=== PATIENT | female | born 1995 | race Two or more races ===

== ENCOUNTER 2017-12-19 23:29 | Emergency (ER) | payer OTHER | END 2017-12-20 00:30 | disposition home or self-care (01) | LOC: H.EROB2 23:29 | DX: O47.1 False labor at or after 37 completed weeks of gestation (principal); Z3A.37 37 weeks gestation of pregnancy ==

== ENCOUNTER 2017-12-20 04:53 | Inpatient (IN) | payer OTHER ==
[2017-12-20 05:38] VITALS: BMI 28.5
[2017-12-20] MEDS ORDERED: Oxytocin 30 UNITS in Sodium Chloride 0.9% 500 ML IV PRN (05:38)
[2017-12-20] MEDS: Lactated Ringer's 1,000 ML IV SCH ×4 (05:50→16:00)
[2017-12-20] MEDS ORDERED: Nalbuphine 20 mg/ml Inj (1 ml) IVP PRN (05:52)
[2017-12-20 06:29] LABS: BASO # 0.1 K/uL (0.0-0.2); BASO % 0.5 % (0.0-2.0); EOS # 0.1 K/uL (0.0-0.7); EOS % 0.4 % (0.0-4.0); LYMPH # 1.8 K/uL (1.0-4.3); LYMPH % 10.5 % (20.0-40.0); MEAN CELL VOLUME 85.5 fl (81.0-99.0); MEAN CORPUSCULAR HEMOGLOBIN 27.3 pg (27.0-31.0); MEAN PLATELET VOLUME 9.8 fl (7.2-11.7); MONO # 1.1 K/uL (0.0-0.8); MONO % 6.5 % (0.0-10.0); NEUT % 82.1 % (50.0-75.0); NRBC % 0.1 % (0.0-0.0); RBC 4.02 Mil/uL (3.80-5.20); RED CELL DISTRIBUTION WIDTH 15.5 % (11.5-14.5); WHITE BLOOD COUNT 17.1 K/uL (4.8-10.8)
[2017-12-20] MEDS ORDERED: Lidocaine 1% Inj (20ml) ONE (08:59)
[2017-12-20] MEDS ORDERED: Fentanyl/Bupivacaine HCl 250 ML EPI ONE (08:59)
--- NOTE | 2017-12-20 11:41 | OBPN ---
Datetime: 12/20/2017 11:38 IP Progress Impression: Reassuring heart rate IP Progress Plan: Continue present management Contraction Comments Provider: q4-5min FHR - Baseline A Provider: 120s IP Progress Note Comment: Pt resting comfortably s/p epidural. Cont current management. Both MWB/F WB reassuring at this time Vital Signs Provider: Reviewed; Within Normal Limits NICHD Accel Fetus A IP Provider: 15X15 FHR Category Provider Fetus A: Category I NICHD Variability Prov Fetus A: Moderate 6-25bpm Dilatation, Provider: 4 NICHD Decel Fetus A IP Provider: None Datetime: 12/20/2017 05:43 Pool Provider: Positive Nitrazine Provider: Positive Membranes, Provider: Ruptured Amniotic Fluid Color, Provider: Meconium, Light
--- NOTE | 2017-12-20 17:37 | OBPN ---
Datetime: 12/20/2017 17:28 IP Progress Impression: Reassuring heart rate IP Procedures: Sterile Vag Exam IP Progress Plan: Continue present management; Augmentation Contraction Comments Provider: q4min FHR - Baseline A Provider: 150s-160s IP Progress Note Comment: Plan to start Pitocin augmentation due to patient 9 cm for a little over 1 hour. Patient comfortable without complaints. Maternal well-being and well-being reassuring at this time. Vital Signs Provider: Reviewed; Within Normal Limits NICHD Accel Fetus A IP Provider: 15X15 NICHD Variability Prov Fetus A: Moderate 6-25bpm Dilatation, Provider: 9 Effacement, Provider: 100 Station, Provider: 0 NICHD Decel Fetus A IP Provider: None
[2017-12-20] MEDS ORDERED: Lidocaine 2% PF (10 ml) Amp ONE ×2 (17:42→21:16)
[2017-12-20] MEDS ORDERED: Gentamicin 80mg/50ml NS 80 MG/50 ML BAG IVPB SCH (18:30)
[2017-12-20] MEDS ORDERED: AMPicillin 2 GM in Sodium Chloride 0.9% 100 ML IVPB ONE (18:37)
[2017-12-20] MEDS ORDERED: AMPicillin 1 GM in Sodium Chloride 0.9% 100 ML IVPB SCH (21:00)
[2017-12-20] MEDS ORDERED: ceFAZolin 2 GM in Sodium Chloride 0.9% 100 ML IVPB ONE (21:05)
[2017-12-20] MEDS ORDERED: Morphine 1 mg/ml preservative-free Inj(Duramorph) ONE (21:23)
[2017-12-20] MEDS ORDERED: DiphenhydrAMINE 50 mg/ml Inj IVP PRN (22:08)
[2017-12-20] MEDS ORDERED: Morphine 1 mg/ml preservative-free Inj(Duramorph) EPI ONE (22:08)
[2017-12-21] MEDS ORDERED: Oxycodone/Acetaminophen 5/325 mg Tab PO PRN ×3 (01:17→01:47)
[2017-12-21] MEDS ORDERED: Nalbuphine 20 mg/ml Inj (1 ml) IVP PRN (01:47)
[2017-12-21] MEDS ORDERED: DiphenhydrAMINE 50 mg/ml Inj IVP PRN (01:47)
[2017-12-21] MEDS: AMPicillin 1 GM in Sodium Chloride 0.9% 100 ML IVPB SCH ×6 (02:00→22:00)
[2017-12-21] MEDS: Lactated Ringer's 1,000 ML IV SCH ×2 (02:51→09:47)
[2017-12-21] MEDS: Simethicone 80 mg Chewtab PO SCH ×4 (04:00→21:43)
[2017-12-21] MEDS ORDERED: Simethicone 80 mg Chewtab PO SCH (04:00)
[2017-12-21 06:48] LABS: HEMOGLOBIN 9.5 g/dL (12.0-16.0); MEAN CORPUSCULAR HGB CONC 32.9 g/dL (33.0-37.0); RBC 3.4 Mil/uL (3.80-5.20); RED CELL DISTRIBUTION WIDTH 15.3 % (11.5-14.5); WHITE BLOOD COUNT 25.4 K/uL (4.8-10.8)
--- NOTE | 2017-12-21 08:36 | OBDS ---
DELIVERY PERSONNEL Delivery Doctor: Chema Valdez MD Scrub Nurse: Kelsy Clark Material Stress Tester: Melony Hernandez RN Anesthesiologist: karli TORRES MATERNAL INFORMATION Delivery Anesthesia: Epidural Medications in Delivery: ancef 2grams, pit 30/500, pit Estimated Blood Loss (ml): 800 Placenta Cultured: No Maternal Complications: Maternal Fever Provider Comments: Primary low flap transverse section. Patient delivered viable with Apgars of 9 and 9 at one and 5 minutes respectively. Normal u terus, normal tubes and ovaries bilaterally. Placenta delivered manually. Estimated blood loss 800 mL Fluids 1700 mL lactated Ringer's Urine output 250 mL No complications LABOR SUMMARY EDC: 01/09/2018 00:00 No. Babies in Womb: 1 Attempted: No Labor Anesthesia: Epidural LABOR INFORMATION Reason for Induction: Not Applicable Onset of Labor: 12/20/2017 11:50 Complete Dilatation: 12/20/2017 18:18 Oxytocin: Augmentation Group B Beta Strep: Negative Steroids Given: None Reason Steroids Not Administered: Not Applicable MEMBRANES Membranes Rupture Method: Spontaneous Rupture of Membranes: 12/20/2017 03:30 Length of Rupture (hrs): 18.28 Amniotic Fluid Color: Light Meconium Amniotic Fluid Amount: Large STAGES OF LABOR Stage 1 hrs: 6 Stage 1 min: 28 Stage 2 hrs: 3 Stage 2 min: 29 Stage 3 hrs: 0 Stage 3 min: 1 Total Time in Labor hrs: 9 Total Time in Labor min: 58 CSECTION DELIVERY Primary Indication: Failure of Descent CSection Urgency: Emergency CSection Incidence: Primary Labor: Labor Elective: Elective CSection Incision: Lower Uterine Transverse BABY A INFORMATION Delivery Date/Time: 12/20/2017 21:47 Method of Delivery: Born in Route : No : N/A Forceps: N/A Vacuum Extraction: N/A Shoulder Dystocia : No SHOULDER DYSTOCIA BABY A Infant Delivery Date/Time: 12/20/2017 21:47 PRESENTATION/POSITION BABY A Presentation: Cephalic PLACENTA INFORMATION BABY A Placenta Delivery Time : 12/20/2017 21:48 Placenta Method of Delivery: Manual Removal Placenta Status: Delivered SCORES BABY A Heart Rate 1 min: >100 bpm Resp Effort 1 min: Good Cry Reflex Irritability 1 min: Cough or Sneeze or Pulls Away Muscle Tone 1 min: Active Motion Color 1 min: Body [place], Extremities Blue Resuscitation Effort 1 min: N/A SCORE 1 MIN: 9 Heart Rate 5 min: >100 bpm Resp Effort 5 min: Good Cry Reflex Irritability 5 min: Cough or Sneeze or Pulls Away Muscle Tone 5 min: Active Motion Color 5 min: Body [place], Extremities Blue Resuscitation Effort 5 min: N/A SCORE 5 MIN: 9 INFORMATION BABY A Gestational Age at Delivery: 37.1 Gestational Status: Term Infant Outcome : Liveborn Condition : Stable Sex: Male IDENTIFICATION/MEDS BABY A ID Band Number: [id number] ID Band Location: Left Leg; Left Arm WEIGHT/LENGTH BABY A Birthweight (gms): 2900 Infant Weight (lb): 6 Weight (oz): 6 CORD INFORMATION BABY A No. Cord Vessels: 3 Nuchal Cord : N/A Cord Blood Taken: Yes Infant Suction: Mouth; Nose ASSESSMENT BABY A Infant Complications: Other Complications Other: light mech noted Physical Findings at Delivery: Caput Succedaneum Respirations: Appears Normal Closet Builder/ALS Called : No Care By: DR Stein Transferred To: Remains with Mother
[2017-12-21] MEDS: Oxycodone/Acetaminophen 5/325 mg Tab PO PRN ×2 (08:56→14:50)
[2017-12-21] MEDS ORDERED: Gentamicin 80mg/50ml NS 80 MG/50 ML BAG IVPB SCH (09:00)
--- NOTE | 2017-12-21 09:31 | OBPPN ---
Datetime: 12/21/2017 09:22 PP Pain Prov: Within normal limits PP Nausea Prov: Denies PP Flatus Prov: Yes PP Breasts Prov: Normal PP Heart Prov: Normal PP Lungs Prov: Normal PP Abdomen/Uterus Prov: Normal PP Lochia Prov: Normal PP Vulva/Perineum Prov: Normal PP CVA Tenderness Prov: Normal PP Extremities Prov: Normal PP Impression Prov: Normal progression PP Plan Prov: Continue present management PP Progress Note Prov: Patient evaluated, denies CP, no SOB, no N/V, tolerating PO diet, ambulating/ voiding minimal, mild lochia, abdominal pain tolerable with meds, no fever A/P 1. Patient developed fever during delivery, will continue antibiotics for 24 hours post delivery 2. continue routine postop orders 3. Encourage ambulation/ 4. Percocet/Motrin prn pain IP PP Procedures: None Vital Signs Provider PP: Reviewed; Within Normal Limits
[2017-12-21] MEDS: Gentamicin 80mg/50ml NS 80 MG/50 ML BAG IVPB SCH ×2 (12:19→20:16)
--- NOTE | 2017-12-21 12:35 | OP ---
PROCEDURE DATE: 12/20/2017 PREOPERATIVE DIAGNOSES: Arrest of descent in active labor and chorioamnionitis. POSTOPERATIVE DIAGNOSES: Arrest of descent in active labor and chorioamnionitis. OPERATION PERFORMED: Primary low-flap transverse section via Pfannenstiel incision. SURGEON: Sami Valdez MD. PLATE FILLER: Larry Mann MD. Dr. Mann was present from the beginning of the procedure to the end of procedure. Dr. Mann was integral in exposing the surgical field, controlling intraoperative bleeding, and manual delivery of the infant. TYPE OF ANESTHESIA: Epidural. ANESTHESIA ADMINISTERED BY: Dr. Win. OPERATIVE FINDINGS: Viable infant male with Apgars of 9 and 9 at one and five minutes respectively. Normal uterus, normal tubes and ovaries bilaterally. ESTIMATED BLOOD LOSS: 800 mL. FLUIDS: 1700 mL of lactated Ringer's. URINE OUTPUT: 250 mL of clear urine at the end of procedure. COMPLICATIONS: No complications. DESCRIPTION OF PROCEDURE: The patient was taken to the operating room where epidural anesthesia was found to be adequate. The patient was prepped and draped in the normal sterile fashion in the dorsal supine position with a leftward tilt. A Pfannenstiel skin incision was made with a scalpel. This was carried down through to the underlying layer of fascia with the scalpel. Midline defect was made in the fascial layer with the scalpel. The fascial incision was then extended bilaterally sharply with curved Carroll scissors. The fascial layer was from the rectus muscles both bluntly and sharply with curved Carroll scissors. The rectus muscles were at the midline. The peritoneum was then identified, tented up with Ania clamps x2, and entered sharply with Metzenbaum scissors. This peritoneal incision was then extended superiorly and inferiorly with good visualization of the urinary bladder. A bladder blade was inserted into the abdomen. The vesicouterine peritoneum was then identified, tented up with Ania clamps x2, and entered sharply with Metzenbaum scissors. This peritoneal incision was then extended bilaterally with Metzenbaum scissors. The bladder flap was created digitally. The [place] retractors were placed over the urinary bladder. The uterus was incised with a scalpel. The uterine incision was extended bilaterally bluntly. The 's head was delivered atraumatically. Nose and mouth were suctioned with bulb suction. The remainder of the infant was delivered without complication. The cord was clamped and cut. The was handed off to waiting pediatricians. Cord gases were collected. Cord blood was collected. The placenta was removed manually. The uterus was cleared of all clots and debris. The uterine incision was repaired with 0 Vicryl in a running, locked fashion. Second layer of the same suture was used to imbricate the first and to obtain excellent hemostasis. Reinspection of the uterine incision proved excellent hemostasis. The abdomen and pelvis were irrigated with copious amounts of warm normal saline. Reinspection of the uterine incision proved excellent hemostasis. All instruments were removed from the patient. The peritoneal layer was closed with a running stitch of 2-0 chromic. The rectus muscles were reapproximated with a running stitch of 2-0 chromic. The fascial layer was closed with a running stitch of 0 Vicryl. Subcutaneous tissue was closed with a running stitch of 3-0 plain. The skin was closed with a subcutaneous stitch of 3-0 Vicryl. The patient tolerated the procedure well. All sponge, lap count, and needle counts were correct x2. The patient was given 2 g of Ancef just prior to the beginning of the procedure. There were no complications. The patient was taken to the recovery room in awake and stable condition. Sami Valdez MD
[2017-12-22] MEDS: AMPicillin 1 GM in Sodium Chloride 0.9% 100 ML IVPB SCH ×2 (01:59→05:43)
[2017-12-22] MEDS: Gentamicin 80mg/50ml NS 80 MG/50 ML BAG IVPB SCH (04:11)
[2017-12-22] MEDS: Simethicone 80 mg Chewtab PO SCH ×4 (04:16→22:16)
[2017-12-23] MEDS: Simethicone 80 mg Chewtab PO SCH ×2 (05:35→09:14)
[2017-12-23] MEDS: Oxycodone/Acetaminophen 5/325 mg Tab PO PRN (09:16)
--- NOTE | 2017-12-23 09:18 | OBPPN ---
Datetime: 12/22/2017 09:15 PP Pain Prov: Within normal limits PP Nausea Prov: Denies PP Flatus Prov: Yes PP Breasts Prov: Normal PP Heart Prov: Normal PP Lungs Prov: Normal PP Abdomen/Uterus Prov: Normal PP Lochia Prov: Normal PP Vulva/Perineum Prov: Normal PP CVA Tenderness Prov: Normal PP Extremities Prov: Normal PP Comments Phys Exam Prov: Incision clean, dry, intact Uterus firm, below umbilicus No deep calf tenderness bilaterally PP Impression Prov: Normal progression PP Plan Prov: Continue present management PP Progress Note Prov: Postoperative day #2 status post , recovering well Out of bed and ambulate regular diet Pain control Continue current management IP PP Procedures: None Vital Signs Provider PP: Reviewed; Within Normal Limits
--- NOTE | 2017-12-23 09:26 | NBCIR ---
Datetime: 12/20/2017 00:09 Preformed by:: [place] Circumcision Request: Yes Consent Signed: Written Consent Signed and on Chart Position: [place] Board Circumcision Time Out: Correct Patient Identity; Correct Side and Site are Marked; Accurate Procedur e Consent Form; Agreement on Procedure to be Done; Correct Patient Position Site Prep: Povidine Iodine Circumcision Date/Time: 12/22/2017 15:24 Block/Anesthestics: 1 Percent Lidocaine; Dorsal Nerve Block Equipment Used: [place] Clamp [place] Size: 1.1 Systemic Medications: None Complications: None Status: Excellent Cosmetic Outcome; Tolerated Procedure Well; Hemostatic Parents Present: None Procedure Note: No complications. Patient tolerated procedure well. Datetime: 12/19/2017 23:29 PT-NAME: ALEXIS JUDGE
--- NOTE | 2017-12-23 12:13 | OBPPN ---
Datetime: 12/23/2017 12:11 PP Pain Prov: Within normal limits PP Nausea Prov: Denies PP Flatus Prov: Yes PP Breasts Prov: Normal PP Heart Prov: Normal PP Lungs Prov: Normal PP Abdomen/Uterus Prov: Normal PP Lochia Prov: Normal PP Vulva/Perineum Prov: Normal PP CVA Tenderness Prov: Normal PP Extremities Prov: Normal PP Comments Phys Exam Prov: Incision clean/dry/intact Fundus firm under umbilicus PP Impression Prov: Normal progression PP Plan Prov: Continue present management PP Progress Note Prov: Patient denies CP, no SOB, no N/V, tolerating PO diet, ambulating/voiding wel l, abdominal pain tolerable with meds A/P 1. Discharge patient home 2. discharge instructions reviewed IP PP Procedures: None Vital Signs Provider PP: Reviewed; Within Normal Limits
--- NOTE | 2017-12-23 12:13 | OBDCSUM ---
Datetime: 12/23/2017 12:12 Discharged to, Provider: Home Follow up at, Provider: OB Disch Instr Activity: Normal activity Disch Instr Diet: Regular Discharge Instructions, Provider: Routine instructions given Discharge Diagnosis, Provider: Term Delivered Discharge Time: 12/23/2017 12:12 Follow up in weeks, Provider: 1 wk, 6 wks Disch Referrals: None Contraception discussed, Prov: Yes Datetime: 12/20/2017 00:12 Follow up at, Provider: OBGYN Follow up in weeks, Provider: in 1 week Disch Activity Restrictions: No exercising
[2017-12-23 19:52] VITALS: BP 113/74; PULSE 79; RESP 18; TEMP 98.6; O2SAT 99
== END 2017-12-23 15:40 | disposition home or self-care (01) | DRG 765 ==
LOC: H.EROB2 04:53 → H.L&D 05:38 → H.OB/GYN 12-21 01:00
PROVIDERS: ADMIT Obstetrics & Gynecology Gynecology; ATTEND Obstetrics & Gynecology Gynecology
PROC: 10D00Z1 Extraction of Products of Conception, Low, Open Approach (ICD-10-PCS; principal; 2017-12-20)
PROC: 4A1HXCZ Monitoring of Products of Conception, Cardiac Rate, External Approach (ICD-10-PCS; 2017-12-20)
DX: O32.4XX0 Maternal care for high head at term, not applicable or unspecified (principal); O41.1230 Chorioamnionitis, third trimester, not applicable or unspecified; O75.2 Pyrexia during labor, not elsewhere classified; O62.1 Secondary uterine inertia; Z37.0 Single live birth; O77.0 Labor and delivery complicated by meconium in amniotic fluid; Z3A.37 37 weeks gestation of pregnancy